=== PATIENT | male | born 1945 | race Caucasian/White ===

== ENCOUNTER 2017-03-27 14:10 | Day surgery (SDC) | payer MEDICARE ==
[~2017-03-27] VITALS: Ht 177.8 cm; Wt 90.7 kg
[~2017-03-27 14:10] MED LIST: ASPI-973 PO; CARV12.5 PO; CEPH500C PO; FUR20 PO; GLUC-91 PO; HYDR-4003 PO; LIP40 PO; LOSA50TA37 PO; Lactated Ringer's 1,000 ML IV ONE; NITR0.4T SL; SPIR25TA3 PO; UBID100T7 PO; UBID200C PO; ZES5 PO; ZOLP10TA5 PO
[2017-03-27] MEDS ORDERED: Propofol 10,000 mCg/mL 20 mL Inj ONE (14:11)
[2017-03-27] MEDS ORDERED: fentaNYL-PF 50 mCg/mL 2 mL Inj ONE (14:11)
[2017-03-27 14:26] VITALS: BP 131/75; PULSE 77; RESP 16; O2SAT 93
--- NOTE | 2017-03-27 15:25 | PCM.HPANE ---
Patient Data Date of Service: Mar 27, 2017 (152) Surgeon Admitting Provider: Attending Provider:Chadwick Wise MD Primary Care Physician:Morgan Aguilar DO Other Provider:Hailey Kelley Anesthesia Reason for Visit Colon Polyps Ht/WT & BMI Height (Feet): 5 Height (Inches): 10 Weight (Kilograms): 90.72 Body Mass Index 28.00 Allergies Coded Allergies: No Known Drug Allergies (Verified Allergy, Unknown, 03/27/17) Past Anesthesia History Anesthesia History: Denies:: Abnormal Airway, Anesthesia Reactions, Difficult Intubation, Fam Anesthesia Reaction, Fam Malignant Hypertherm, Malignant Hyperthermia Diabetes History Hx Diabetes?: No MRSA MRSA: No Medications Blood Thinner: Aspirin Last Dose Blood Thinner: Mar 26, 2017 Active Scripts Hydrocodone-Acetaminophen 5-325 mg 1 Each Tablet1 Each PO Q4-6H For Pain #14 Ref 0 Prov:Rainer Lindsay PA-C 12/15/13 Reported Medications Aspirin 81 Mg Rrtfwh88 Mg PO DAILY Ref 0 03/25/17 Atorvastatin (Lipitor)40 Mg Iwaafb89 Mg PO DAILY Ref 0 03/25/17 Zolpidem 10 Mg Ejqcjc80 Mg PO HS PRN For Insomnia Ref 0 03/25/17 Losartan Potassium 50 Mg Mcgcyv15 Mg PO 03/25/17 Gluc/Azar-MSM#1/Vit C/Michael/Bor (Mfjcbos-Qcaeu-AYQ Complex Cplt)1 Each Tablet2 Tab PO DAILY 12/13/13 Ubidecarenone (Coenzyme Q10)100 Mg Wtgxxd956 Mg PO PM 12/13/13 Nitroglycerin SL (Nitrostat)0.4 Mg Tab.subl0.4 Mg SL Q5MIN PRN For Chest Pain # 1 BOTTLE 12/13/13 Spironolactone 25 Mg Tablet0.5 Tab PO DAILY #30 TABLET Ref 0 12/13/13 Furosemide 20 Mg Tab20 Mg PO DAILY 30 Days Ref 0 12/13/13 Carvedilol (Coreg)12.5 Mg Lxlqqw38.5 Mg PO BID Ref 0 12/13/13 Lisinopril-Expunged Drug, Do Not Renew! 5 Mg Tablet5 Mg PO DAILY #30 TAB 09/01/13 Discontinued Reported Medications Ubidecarenone (Coenzyme Q10)200 Mg Zzgcrrr312 Mg PO PM 12/13/13 Clopidogrel-Expunged Drug, Do Not Renew! (Plavix-Expunged Drug, Do Not Renew!) 75 Mg Whwfsq77 Mg PO DAILY 09/03/13 Atorvastatin-Expunged Drug, Do Not Renew! 40 Mg Hevnya81 Mg PO DAILY #30 TAB For Cholesterol Management. 09/03/13 Aspirin-Expunged Drug, Do Not Renew! (Lo-Dose Aspirin-Expunged Drug, Do Not Renew!)81 Mg Tablet.dr81 Mg PO DAILY 09/01/13 Discontinued Scripts Cephalexin 500 Mg Rwdtwnk026 Mg PO QID #20 CAPSULE Ref 0 Prov:Ronaldo Keita PAC 02/03/16 Cephalexin 500 Mg Oerstby141 Mg PO TID #21 CAPSULE Ref 0 Prov:Rainer Lindsay PA-C 12/15/13 History History of ENT Problems?: Yes HEENT History: Positive for:: Cataracts (WILL HAVE SURGERY) Denies:: Abnormal Airway Difficult Intubation Hearing Problem Sinus Problem Denture Type: None Teeth Condition: Missing Teeth Other HEENT Pertinent History: MULTIPLE UPPER AND LOWER Hx of Heart Problems?: Yes Cardiovascular History: Positive for:: Cardiac Surgery (cardiac stent LAD - 2012) Chest Pain (none since 2012) Congestive Heart Failure Pacemaker (AICD, never shocked. Not pacer dependent.) Denies:: Atrial Fibrillation Hypertension Valvular Heart Disease Hx of Respiratory Problem?: No Respiratory History: Denies:: Asthma COPD Emphysema Hemoptysis Tuberculosis Hx Neurologic Problems?: No Neurological History: Positive for:: Dizziness (per H/P) Denies:: CVA Dementia Headaches Seizures Hx of GI Problems?: No Hx of Problems?: No Male Hx: Positive for:: Prostate Problems (SLIGHTLY ENLARGED) Hx Musculoskeletal Problems?: No Musculoskeletal History: Denies:: Joint Replacement Hx of Psycho/Social Problems?: No Psycho Social History: Positive for:: Hx Depression Denies:: Anxiety Hx Surgeries?: Yes (LAD stent x2, hernia, R wrist prosthesis) Hx Any Other Health Problems?: Yes Other History: Positive for:: Hospitalization Denies:: Cancer Endocrine Disease Thyroid Disease History Blood Transfusions: Denies:: Blood Transfuse Reaction Blood Transfusions Hx Diabetes: No Hx Alcohol Use: YesHx Substance Use: No Smoking Status: Former Smoker Have You Smoked inLast 12 mo: No Stop/Bang Treated for Sleep Apnea?: No Do You Have a CPAP Machine?: No S-Snoring: Do You Snore Loudly: No T-Tired: feel tired, fatigued: No O-Obsered: Observed not breath: No P-Blood Pressure: treated: Yes B- Body Mass Index > 35 kg/m2: No A- Age over 50: Yes N- Neck Large Circumference: No G- Gender Male: Yes ALIA Total Score: 3 Risk Assessment Category Category 1A: Patient has history of documented sleep apnea, and HAS NOT received any narcotic, sedative or anesthesia administration during this stay. Category 1B: Patient has history of documented sleep apnea, and HAS received any narcotic , sedative or anesthesia administration during this stay Category 2: Patient has SUSPECTED Obstructive Sleep Apnea, and HAS received any narcotic , sedative or anesthesia administration during this stay. Category 3: Patient has SUSPECTED Obstructive Sleep Apnea and HAS NOT received narcotic, sedative or anesthesia administration during this stay. Category 4: Outpatient in Procedural Areas with known sleep apnea or who screen positive for High Risk via the STOP/BANG questionnaire. Exam Exam Vital Signs Vital Signs Date Time Temp Pulse Resp B/P Pulse Ox O2 Delivery O2 Flow Rate FiO2 03/27/17 14:26 36.6 77 16 131/75 93 Room Air General Appearance: Alert, Oriented X3, No Acute Distress HEENT/AIRWAY: MP 1 Lungs: Clear to Auscultation Heart: Exam Unremarkable Plan Impression Patient chart reviewed, patient interviewed and anesthestic plan with risks, benefits, and alternatives discussed, and informed consent obtained. NPO per Anesth. Guidelines: Yes ASA Physical Status: ASA3 Severe Disease Anesthetic Plan: GA Bene/Risks/Altern/Consents: Yes HP Complete Prior to Induction: Yes Bryan Calles MD Mar 27, 2017 15:25
[2017-03-27 15:52] VITALS: BP 97/57; PULSE 64; RESP 16; O2SAT 94
[2017-03-27] MEDS ORDERED: Lactated Ringer's 1,000 ML IV SCH (15:53)
--- NOTE | 2017-03-27 15:53 | PCM.ANEP1 ---
Post Anesthesia PACU Phase 1 Assessment Vital Signs 97/57, 96%, 63, 12 Vital Signs Date Time Temp Pulse Resp B/P Pulse Ox O2 Delivery O2 Flow Rate FiO2 03/27/17 14:26 36.6 77 16 131/75 93 Room Air Anesthetic Administered: GA Level of Alertness: Awake, talking TRAVIS's with Equal Strength: Yes Pain: No Nausea or Vomiting: No CV Function & Hydration Stable: Yes Airway Device: none Oxygen Delivery: Room Air Lungs: Clear to Auscultation Dermatome Level: Full Sensation Summary uneventful ga PACU Phase 2 Assessment Complications: No Follow up Care: No Patient Instructions Provided: N/A Bryan Calles MD Mar 27, 2017 15:53
[2017-03-27] MEDS ORDERED: Ondansetron 2 mg/mL 2 mL Inj IVPUSH PRN (15:55)
[2017-03-27] MEDS ORDERED: MetoCLOpramide 5 mg/mL 2 mL Inj IVPUSH PRN (15:55)
[2017-03-27 16:02] VITALS: BP 105/67; PULSE 56; RESP 16; O2SAT 95
[2017-03-27 16:12] VITALS: BP 120/73; PULSE 62; RESP 16; O2SAT 95
--- NOTE | 2017-03-27 18:15 | ENDO ---
[address] [address] ENDOSCOPY PROCEDURE PATIENT: JANETH JOYCE : 1945 MR#: [id number] ADMIT: 03/27/2017 JOB ID: [id number] PROCEDURE: Colonoscopy. INDICATION: Patient with a history of colon polyps. ANESTHESIA: Patient's ASA classification, Mallampati score, and medications as per Dr. Bryan Calles's anesthesia note. INSTRUMENT USED: PCF H 180 AL PREPARATION QUALITY: Good. PROCEDURE DETAILS: After informed consent was obtained, the patient was brought into the GI suite, where he was placed on oxygen via nasal cannula and monitored with continuous pulse oximeter, telemetry, and blood pressure monitoring. A time-out was performed, then he was placed in the left lateral decubitus position and medications were administered for sedation. Digital rectal exam was performed and was unremarkable. The colonoscope was then inserted into the rectum and advanced under direct visualization to the cecum, which was identified by the presence of the ileocecal valve and appendiceal orifice. Once the cecum was reached, the colonoscope was withdrawn back into the rectum as the mucosa and lumen were examined. In the rectum, retroflexion was performed. Following retroflexion, the remaining air in the rectum was suctioned and the procedure was completed. FINDINGS: 1. Scattered diverticula were seen throughout the sigmoid colon. 2. In the sigmoid colon there was an approximately 4 mm sessile polyp that was removed with a cold snare. IMPRESSION: 1. Sigmoid colon polyp. 2. Left-sided diverticulosis. RECOMMENDATIONS: 1. Fiber rich diet. 2. Repeat colonoscopy in five years. COMPLICATIONS: None. ESTIMATED BLOOD LOSS: Less than 5 mL. CC: Dr. Morgan Aguilar
--- NOTE | 2017-03-31 18:10 | PATH ---
SURGICAL PATHOLOGY Attending Physician:Torri Lema CASE STATUS: Signed Out PATIENT NAME: JANETH JOYCE PID: [id number] : 1945 DATE COLLECTED:03/27/2017 00:00 SPECIMEN: Colon, Polyp CLINICAL HISTORY: 1). SIGMOID COLON POLYP FINAL DIAGNOSIS: 1.SIGMOID COLON POLYP, BIOPSY: SERRATED POLYP, FAVOR HYPERPLASTIC POLYP. ICD10 D12.5 GROSS DESCRIPTION: The specimen is received in one formalin filled container labeled with the patient's name, sublabeled "sigmoid colon polyp" and consists of a 0.3 x 0.2 x 0.2 CM portion of tissue. The specimen is entirely submitted in one cassette. 03/28/2017DC MICRO DESCRIPTION: See diagnosis. ICD-9 CODES: CPT CODES: 1: 80414 Electronically Signed Out Saroj Hauser MD, Ph.D. [facility] [address], [place] [address] Technical component performed at [facility], [facility] [address], [place], [address]
== END 2017-03-27 23:59 | disposition home or self-care (01) ==
LOC: END 14:10
PROVIDERS: ATTEND Internal Medicine Gastroenterology
DX: Z12.11 Encounter for screening for malignant neoplasm of colon (principal); K63.5 Polyp of colon; Z86.010 Personal history of colon polyps; Z95.810 Presence of automatic (implantable) cardiac defibrillator; G47.33 Obstructive sleep apnea (adult) (pediatric); I25.10 Atherosclerotic heart disease of native coronary artery without angina pectoris; N18.9 Chronic kidney disease, unspecified; I25.2 Old myocardial infarction; Z79.82 Long term (current) use of aspirin; I50.9 Heart failure, unspecified; K57.30 Diverticulosis of large intestine without perforation or abscess without bleeding; Z87.891 Personal history of nicotine dependence